=== PATIENT | female | born 2000 | race African-American/Black ===

== ENCOUNTER 2022-06-19 11:20 | Emergency (ER) | payer OTHER, SELFPAY ==
--- NOTE | 2022-06-19 11:31 | PC.NURSE ---
1130- Pt LWBS, told registration she had somewhere else to be and did not want to pay her $75 copay
== END 2022-06-19 11:30 | disposition left against medical advice (07) ==
DX: Z53.21 Procedure and treatment not carried out due to patient leaving prior to being seen by health care provider (principal)
CPT/HCPCS: 99199

== ENCOUNTER 2022-06-21 12:57 | Emergency (ER) | payer OTHER, SELFPAY ==
[2022-06-21 13:27] VITALS: BP 154/72; PULSE 81; RESP 16; TEMP 35.7; O2SAT 99
--- NOTE | 2022-06-21 14:07 | ED.EAR ---
HPI - Ear Problem General Chief complaint: Ear Stated complaint: ear clogged Time Seen by Provider: 06/21/22 14:06 Source: patient Mode of arrival: ambulatory Limitations: no limitations History of Present Illness HPI Narrative: 21-year-old female presented for complaint of right ear feeling clogged for 2 days. Also endorses a little bit of ringing and decreased hearing. She denies associated dizziness, nausea, vomiting, fevers or chills. MD Complaint: ear pain Related Data Home Medications Medication Instructions Recorded Confirmed No Home Medications 06/21/22 06/21/22 Allergies Allergy/AdvReac Type Severity Reaction Status Date / Time No Known Allergies Allergy Verified 06/21/22 14:22 Review of Systems Review of Systems: CONSTITUTIONAL: Denies malaise, chills, or fever. EYES: Denies visual changes, redness, or discharge. ENT: Denies rhinorrhea, congestion, sinus pain, and sore throat. Reports ear clogged CARDIOVASCULAR: Denies chest pain, palpitations, or edema. RESPIRATORY: Denies cough or dyspnea. GASTROINTESTINAL: Denies abdominal pain, nausea, vomiting, diarrhea SKIN: Denies rash or itching. MUSCULOSKELETAL: Denies myalgia. NEUROLOGIC: Denies headache. All systems reviewed & are unremarkable except as noted in HPI and below PMFSH Past Medical History Medical History (Updated 06/21/22 @ 14:14 by Elisabeth Sheffield APRN) No pertinent past medical history Comments At time of signature, agree with nursing past medical, surgical, social and family history. There is no relevant family history pertinent to the presenting complaint Exam Narrative: GENERAL: Well-appearing, well-nourished, and in no acute distress. HEAD: Normocephalic EYES: PERRLA, conjunctivae clear ENT: Nares clear. Mucous membranes moist. TM unable to visualize due to excess cerumen bilaterally; no tragal tenderness. Oropharynx not erythematous without lesions. NECK: Supple. No lymphadenopathy CHEST: Clear to auscultation, breath sounds equal. No wheezing, rhonchi, rales, or stridor. No respiratory distress, speaks in full sentences. HEART: Regular rate and rhythm. No murmur heard. SKIN: Warm, dry, no rash. NEURO: Alert and oriented x3. PSYCH: Normal mood and affect Course Course Emergency Course: Patient is aware of diagnosis, understands and agrees to treatment plan. Anticipatory guidance given. Patient agrees to follow-up as directed and is aware of reasons to seek care at the emergency department. Portions of this record may have been created with voice recognition software Level of Care: Express Care Visit Vital Signs Vital signs: Vital Signs Temperature 96.3 F L 06/21/22 13:27 Pulse Rate 81 06/21/22 13:27 Respiratory Rate 16 06/21/22 13:27 Blood Pressure 154/72 H 06/21/22 13:27 Pulse Oximetry 99 06/21/22 13:27 Oxygen Delivery Room Air 06/21/22 13:27 Temperature 96.3 F L 06/21/22 13:27 Pulse Rate 81 06/21/22 13:27 Respiratory Rate 16 06/21/22 13:27 Blood Pressure 154/72 H 06/21/22 13:27 Pulse Oximetry 99 06/21/22 13:27 Oxygen Delivery Room Air 06/21/22 13:27 Reviewed Procedures Ear Wax Removal Both Ears: Ear Wax Removal Date: 06/21/22 Cerumenolytic Used: other (Hydrogen peroxide and warm water) Results: Re-examined: cerumen removed completely TM Examination: TM(s) intact, normal appearance Ear Canal Exam: atraumatic Patient Tolerated Procedure: well and no complications Complications: no problems Technique: ear canal irrigated and ear canal curetted Additional Comments: Large amount of wax removed from both ears completely. Patient tolerated well. Medical Decision Making MDM Narrative Medical decision making narrative: Advised supportive measures and signs/symptoms to go to the ER. Patient is appropriate for outpatient treatment and follow-up. Differential Diagnosis Differential Diagnosis: Coronavirus, strep ph
--- NOTE | 2022-06-21 14:19 | PC.NURSE ---
1414 ear irrigation set up at bedside.
== END 2022-06-21 14:42 | disposition home or self-care (01) ==
PROVIDERS: Emergency Provider Nurse Practitioner Family
DX: H61.23 Impacted cerumen, bilateral (principal)
CPT/HCPCS: 69210; 99212; G0463